=== PATIENT | female | born 1975 | race Caucasian/White ===

== ENCOUNTER 2020-09-29 09:27 | Outpatient (CLI) | payer BC, SELFPAY ==
--- NOTE | 2020-09-29 09:30 | ECG_ITS ---
Measurements Intervals [place] Rate: 54 P: 41 NM: 187 QRS: 55 QRSD: 93 T: 48 QT: 429 QTc: 409 Interpretive Statements SINUS BRADYCARDIA CANNOT RULE OUT SEPTAL INFARCT, AGE INDETERMINATE BASELINE ARTIFACT- II, III, AVL ABNORMAL ECG Electronically Signed On 09-29-2020 11:28:38 CDT by Leobardo Vazquez D.O.
[2020-09-29 10:18] LABS: Anion Gap 6 mmol/L (8-16); Blood Urea Nitrogen 8 mg/dL (7-17); Calcium 9.2 mg/dL (8.4-10.2); Carbon Dioxide 30 mmol/L (22-30); Chloride 100 mmol/L (98-107); Estimated Glomerular Filt Rate > 60; Glucose 92 mg/dL (65-110); Potassium 3.9 mmol/L (3.4-5.0); Sodium 136 mmol/L (137-145)
== END 2020-09-29 09:28 | disposition home or self-care (01) ==
PROVIDERS: Anesthesiology; PCP Family Medicine; Visit Provider Orthopaedic Surgery
DX: Z01.818 Encounter for other preprocedural examination (principal); I10 Essential (primary) hypertension; R00.1 Bradycardia, unspecified
CPT/HCPCS: 36415; 80048; 93005

== ENCOUNTER → 2020-09-30 00:42 | Outpatient (CLI) | payer BC, SELFPAY ==
[2020-09-30 17:52] LABS: SARS-CoV-2 RNA PCR Negative
== END ==
PROVIDERS: Anesthesiology; PCP Family Medicine; Visit Provider Orthopaedic Surgery
DX: Z01.812 Encounter for preprocedural laboratory examination (principal); Z20.822 Contact with and (suspected) exposure to COVID-19
CPT/HCPCS: C9803; U0003; U0005

== ENCOUNTER 2020-10-03 00:41 | Day surgery (SDC) | payer BC, SELFPAY ==
[2020-09-27 14:14] VITALS: BMI 25.0
[2020-10-03] VITALS (8 sets, daily range): BP systolic 118–134; BP diastolic 74–89; PULSE 66–89; RESP 12–18; TEMP 36.8–37.6; O2SAT 97–100
--- NOTE | ~2020-10-03 | XR_ITS ---
EXAMINATION: XR hand LT 2V EXAM DATE: 10/03/2020 13:01 INDICATION: Left thumb arthroplasty, postoperative. TECHNIQUE: Frontal and lateral projections of the left wrist. Comparison is made to prior examinatio n from 06/29/2020. FINDINGS: There are surgical changes from recent trapezium resection, with some associated subcutane ous gas. The lateral side of the hand and wrist is splinted. No other radiopaque foreign bodies. IMPRESSION: Status post trapezium resection. Reviewed, dictated and finalized at location B.
--- NOTE | 2020-10-03 08:28 | WPDANESEPPF ---
Anes - Initial Pre Proc Eval Procedure: Operation Date: 10/03/20 10:30 Proposed Procedures p Left Thumb Carpometacarpal Arthroplasty - Arturo Abernathy MD Date/Time: 10/03/20 08:28 Surgeon: Arturo Abernathy MD Pre Op Diagnosis: Left cmc arthritis Patient Data Age: 44 Gender: F Height: 1.55 m Weight: 60 kg Allergies Allergy/AdvReac Type Severity Reaction Status Date / Time No Known Allergies Allergy Verified 07/27/20 14:21 Home Medications Medication Instructions Recorded Confirmed Type cholecalciferol (vitamin D3) 125 5,000 unit PO DAILY cap 06/09/20 09/27/20 History mcg (5,000 unit) capsule labetalol 100 mg tablet 100 mg PO Q12H 06/09/20 09/27/20 History amlodipine 5 mg tablet 5 mg PO DAILY 06/29/20 09/27/20 History lisinopril 10 mg tablet 10 mg PO DAILY 06/29/20 09/27/20 History spironolactone 100 mg tablet 100 mg PO BID 06/29/20 09/27/20 History tramadol 50 mg tablet 50 mg PO Q6H PRN #60 tablet 07/28/20 09/27/20 Rx venlafaxine 75 mg tablet 75 mg PO TID #90 tablet 09/30/20 Rx Patient hx anesthesia problems: none Family hx anesthesia problems: none PMFSH Past Medical History Medical History Allergies Anxiety Essential (primary) hypertension Hypertension Hypokalemia Left wrist pain Migraine without aura and without status migrainosus, not intractable Osteoarthritis of carpometacarpal joint of left thumb UTI (urinary tract infection) Surgical History Surgical History History of x3 History of hysterectomy Family History Family History Mother Hypertension Cancer Father Hypertension Cancer Social History Social History Smoking status: Never smoker Alcohol intake: never Substance use: never Living arrangements: with family Gender identity (if verbalized by the patient): Female Anes - Eval Final PreProcedure Day of Procedure 10/03/20 08:28 Patient weight: normal Heart: regular rate and rhythm Lungs: clear to auscultation and normal air movement Airway: Mallampati scale class II Neurological: alert and oriented Last oral intake: >/= 8 hours ASA classification: II Emergent: no Anesthetic plan: proceed Anesthesia type and monitoring: general LMA and standard monitoring Informed Consent: The patient's anesthetic plan and its attendant risks and benefits were discussed with the patient/family/POA. Questions were solicited and answers provided to the satisfaction of the patient/family/POA.
--- NOTE | 2020-10-03 08:28 | WPDANESPNB ---
Anes - Peripheral Nerve Block Date/Time: 10/03/20 08:28 I have discussed with the patient/family/POA the placement of a peripheral nerve block for post-operative pain management, including associated risks, benefits, complications, and side effects. Alternative methods of post-operative analgesia were detailed. Questions were solicited and answers provided to the satisfaction of the patient/family/POA. Time-Out: A pre-procedural Time-Out was completed immediately before starting the procedure and confirmed: Patient Identification, Site, Procedure, Patient Position and the Availability of Requisite Equipment. Clinical Indications: Acute post-operative pain management requested by the operative surgeon. Nerve Block Insertion Note Anes-nerve block: supraclavicular left Patient position: supine Skin prep: chlorhexidine Needle: 22 gauge, stimulating, insulated echogenic needle. Needle length: 50 mm Technique: ultrasound Injectate: bupivacaine 0.5% with epi 5 mcg/ml (30cc- no epi) Observations: tolerated well Complications: none Procedure start time:: 1043 Procedure end time:: 1046
[2020-10-03] MEDS: LACTATED RINGERS 1,000 ML 30 ML IV CONT ×2 (09:30→13:20)
[2020-10-03] MEDS: ACETAMINOPHEN 500 MG TABLET 1000 MG PO (09:40)
[2020-10-03] MEDS: KETOROLAC 15 MG/ML VIAL (*BKC) IV PUSH (09:45)
--- NOTE | 2020-10-03 10:00 | WPDHPUPDATE1 ---
History and Physical Update Update Date/Time: 10/03/20 10:00 History and Physical has been reviewed, including an updated exam of the patient. There are NO changes in the patient's condition. Risks, benefits, and alternatives have been discussed and questions answered. Patient agrees to proceed with procedure.
[2020-10-03] MEDS: ceFAZolin 2 GM/D5W 50 ML 2 GM/50 ML BAG IVPB (10:51)
--- NOTE | 2020-10-03 12:46 | W.PM.PROC2 ---
Procedure Note - Detailed Date of Procedure 10/03/20 Pre-op Diagnosis Left cmc arthritis Post-op Diagnosis same Procedure Performed left thumb CMC suspension arthroplasty Surgeon Arturo Abernathy MD Control Systems Engineer [place] Anesthesia MAC and regional Indications see H&P Description of Procedure The patient was identified proper site identified. In the preop holding area the anesthesia team performed a left upper extremity block. She was then taken to the operating room transferred to the OR table placing her supine taking care to pad the torso and extremities. After general anesthetic induction and intubation, a nonsterile tourniquet was placed high on the left arm. The left upper extremity was prepped and draped in usual sterile fashion. Extremity was exsanguinated and tourniquet was inflated to 200 mmHg remaining up for approximately 68 minutes. A longitudinal incision was made over the FCR tendon curving radially at the base of the thenar musculature. Subcutaneous tissue bluntly dissected protecting neurovascular structures. A slip of the APL which inserted into the thenar musculature was released and marked for later repair. The thenar musculature was elevated up off of the carpus and the trapezium identified. While protecting the FCR, a trapeziectomy was performed. The a ulnar-sided distally-based 8 cm slip of FCR was then developed hand used to create a sling weaving the tendon slip between the FCR tendon and the APL tendon securing it to itself with 3-0 Ethibond suture. The EPL tendon was advanced on itself and also secured with 3-0 Ethibond suture seating the sling in the trapeziectomy site. This allowed the thumb to sit very nicely in a position of function. The EPB tendon was then reefed also with 3-0 Ethibond taking up the slack in that structure. The wound was irrigated with sterile antibiotic solution. The wrist capsule and thenar musculature were tacked back down with 4-0 Monocryl. The slip of the EPL was reattached to the thenar musculature with 3-0 Ethibond. Skin edges reapproximated with three 0 Monocryl and for 0 Prolene running subcuticular stitch.. Steri-Strips were applied. Sterile dressings applied and the tourniquet was released. Well-padded thumb spica splint was fashioned. The patient tolerated procedure well . She was awakened extubated and taken to recovery area in stable condition. There were no known intraoperative complications. Estimated blood loss was negligible. Perioperative antibiotics were administered. Estimated Blood Loss -2.0 Tourniquet Time 68 Drains No Packing No Pathology none sent Complications No immediate complications Condition stable
[2020-10-03] MEDS: ONDANSETRON INJ 4 MG/2 ML VIAL IV PUSH (13:00)
== END 2020-10-03 14:18 | disposition home or self-care (01) ==
PROVIDERS: PCP Family Medicine; Visit Provider Orthopaedic Surgery
PROC: (CPT 25447; principal; 2020-10-03 10:30)
DX: M18.12 Unilateral primary osteoarthritis of first carpometacarpal joint, left hand (principal); G89.18 Other acute postprocedural pain; I10 Essential (primary) hypertension; F41.9 Anxiety disorder, unspecified; E87.6 Hypokalemia
CPT/HCPCS: 25447; 64415; 73120; A4565; A9270; J0690; J1100; J1885; J2250; J2405; J2704; J3010; J7120

== ENCOUNTER 2020-12-01 08:00 | Outpatient (RCR) | payer BC, SELFPAY ==
--- NOTE | 2020-10-24 08:25 | OTOPEVAL ---
OCCUPATIONAL THERAPY INITIAL EVALUATION REPORT 10/24/2020 Thank you for referring Layla Mckeon to [facility].? The patient is scheduled to be seen for therapy? 1-2x/week for 4 weeks. Please review, sign, date and return this plan of care ROSARIO. I agree with and certify that the following plan of care is medically necessary. Referring Physician Date Referring Provider: Arturo Abernathy MD *OT Outpatient Evaluation Therapy Assessment Status Assessment Status Assessment Status Evaluation Outpatient Past Medical History Past Medical History Source of Past Medical History Recalled from Previous Visit, Confirmed with Patient/Family Neurological History Hx Neurological Disorders No Significant History Cardiovascular History Hx Hypertension Yes Respiratory History Hx Respiratory Disorders No Significant History Gastrointestinal History Hx Gastrointestinal Disorders No Significant History Genitourinary History Hx Genitourinary Disorders No Significant History Musculoskeletal History Hx Arthritis Yes: LEFT THUMB Hx Fractures Yes: LEFT WRIST FRACTURE Hematological History Hx Hematological Disorders No Significant History Endocrine History Hx Endocrine Disorders No Significant History HEENT History Hx HEENT Disorders No Significant History Integumentary History Hx Skin Disorders No Significant History Reproductive History Hx Hysterectomy Yes Psychosocial History Hx Psychiatric Disorders No Significant History Pain History History of Any Previous or Ongoing No Significant History Instance of Pain Anesthesia History Hx Anesthesia Reactions No Significant History Evaluation Information Problem Diagnosis Left thumb CMC arthroplasty Onset 10/03/20 Subjective Information Patient reports that since her Query Text:As Reported By Patient/ surgery she has been having Family her family help with doing the dishes and folding laundry. She has returned to being independent with ADLs and driving, just notes difficulty with heavier household tasks. Prior Level of Function Activity Level (Last 3 Months) Occupation Stay at home mom Hand Dominance Right Activity of Daily Living Ability Independent Cooking Yes Cleaning Yes Laundry Yes Shopping Yes Driving Yes Pain Assessment Timing of Pain Assessment Timing of Pain Assessment Assessment Pain Scale Pain Scale Used Numeric (1 - 10) Self Report Pain Assessment Left Thumb(s) Rep
--- NOTE | 2020-11-07 11:49 | PCOTNOTE ---
Patient did not show up for scheduled appointment this date. Called pt. and left voicemail informing of next appt.
--- NOTE | 2020-11-18 08:47 | PCOTNOTE ---
Patient called & cancelled scheduled appointment this date due to one of her kids being sick.
--- NOTE | 2020-12-01 08:57 | OTOPEVAL ---
OCCUPATIONAL THERAPY RE-EVALUATION AND DISCHARGE SUMMARY 12/01/20 Patient presents today, 8 weeks post op, for OT re-evaluation. Strengthening HEP was delayed until today due to limited therapy attendance. She tolerates resistive exercise well. Instructed in strengthening as well as how to progress resistance over the next few weeks. Recommend that she completes the strengthening program regularly throughout the month of December. She verbalizes good understanding of all of the instructed materials. Discharge today with patient independent with HEP. Thank you for referring Layla Mckeon to [facility]. Please review, sign, date and return this D/C Note ROSARIO. I agree with and certify that the following plan of care is medically necessary. Referring Physician Date Admitting Provider: Attending Provider: Arturo Abernathy MD Referring Provider: *OT Outpatient Evaluation Start: 10/24/20 07:28 Evaluation Information Problem Diagnosis Left thumb CMC arthroplasty Onset 10/03/20 Additional Evaluation Detail Patient was initially evaluated on 10/24/20 and was only able to attend 1 follow up appointment. Presents today for re-evaluation for instruction in strengthening HEP. Subjective Information Patient reports that she has Query Text:As Reported By Patient/ made progress with left hand Family use noting improved ability to use the left hand to wash dishes and do the laundry. She reports feeling weak which restricts her ability to do things like use a can engraver ornamental design. Patient does report some grinding sensation felt on the dorsum of the thumb, which appears to be coming from the 1st dorsal compartment. She states that normal ROM of the thumb causes this to happen. Discussed the mechanics of the tendons and that hopefully as she gets stronger this issue resolves. Recommend she follows up with MD if this gets worse or becomes painful. Pain Assessment Timing of Pain Assessment Timing of Pain Assessment Re-assessment Pain Scale Pain Scale Used Numeric (1 - 10) Self Report Pain Assessment Left Thumb(s) Reported Pain Level 0 Lowest Pain Intensity 0 Greatest Pain Intensity 0 Pain Score Pain Score 0: Self Report Upper Extremity Range of Mot
== END 2020-12-01 15:04 | disposition home or self-care (01) ==
LOC: ANHOT 08:00
PROVIDERS: PCP Family Medicine; Visit Provider Orthopaedic Surgery
DX: Z47.1 Aftercare following joint replacement surgery (principal); Z96.692 Finger-joint replacement of left hand
CPT/HCPCS: 97110; 97140; 97165

== ENCOUNTER 2020-12-14 15:41 | Emergency (ER) | payer BC, SELFPAY ==
--- NOTE | ~2020-12-14 | XR_ITS ---
EXAMINATION: XR wrist LT min 3V DATE: 12/14/2020 16:15 INDICATION: Left wrist pain post recent surgery TECHNIQUE: Posteroanterior, ulnar deviation, oblique, and lateral views of the left wrist were obtain ed. COMPARISON: 11/23/2020 and 06/29/2020 FINDINGS: Again seen are changes of prior first carpal metacarpal suspension arthroplasty with resection of the trapezium. There is some proximal subsidence of the first metatarsal into the resection bed. Which a ppears slightly increased since the prior study. No fracture. No cortical erosions or periosteal reac tion to suggest osteomyelitis. Remaining joint spaces are normal. There is soft tissue swelling about the volar and radial aspects of the wrist. IMPRESSION: 1. First carpal metacarpal suspension arthroplasty with mild interval subsidence of the first metacar pal into the resection bed of the trapezium. Reviewed, dictated and finalized at location B. IMPRESSION: 1. First carpal metacarpal suspension arthroplasty with mild interval subsidenc e of the first metacarpal into the resection bed of the trapezium.
--- NOTE | 2020-12-14 15:42 | ED.UPPEXIN ---
HPI - Extremity Injury (Upper) General Chief Complaint: Extremity Injury, Upper Stated Complaint: Would like X-Ray/ Left Hand Time Seen by Provider: 12/14/20 15:42 Source: patient and RN notes reviewed History of Present Illness HPI narrative: Patient is a 45-year-old female who presents the urgent care with complaints of left hand pain. Patient states that she had surgery on her left hand in September. States that when she picked up her granddaughter this afternoon she heard a pop in the left hand . And now there is swelling around the surgical site. Patient states that Dr. Abernathy did the surgery. States that she is taken both Tylenol and Advil prior to her arrival without much pain relief. Patient states that even hurts to straighten the left arm. No other acute complaints. No acute distress noted. Patient aware of the plan of care. Some parts of this dictation were generated by voice recognition software and may contain typographical and/or grammatical inaccuracies. Related Data Home Medications Medication Instructions Recorded Confirmed labetalol 100 mg tablet 100 mg PO Q12H 06/09/20 12/07/20 amlodipine 5 mg tablet 5 mg PO DAILY 06/29/20 12/07/20 lisinopril 10 mg tablet 10 mg PO DAILY 06/29/20 12/07/20 venlafaxine 225 mg PO DAILY 12/14/20 12/14/20 Allergies Allergy/AdvReac Type Severity Reaction Status Date / Time No Known Allergies Allergy Verified 12/14/20 16:06 Review of Systems Review of Systems: CONSTITUTIONAL: Denies fever, chills, or sweats. EYES: Denies visual changes, redness, or discharge. ENT: Denies rhinorrhea, congestion, sore throat, or otalgia. CARDIOVASCULAR: Denies chest pain, palpitations, or edema. RESPIRATORY: Denies cough or dyspnea. GASTROINTESTINAL: Denies abdominal pain, nausea, vomiting, or diarrhea. GENITOURINARY: Denies dysuria or hematuria. SKIN: Denies rash or itching. MUSCULOSKELETAL: Reports of left hand pain and swelling NEUROLOGIC: Denies headache, numbness, or weakness. All other systems reviewed are negative, except as documented in HPI. FOR[facility]LY [facility] Past Medical History Medical History Allergies Anxiety Essential (primary) hypertension Hypertension Hypokalemia Left wrist pain Migraine without aura and without status migrainosus, not intractable UTI (urinary tract infection) Surgical History Surgical History History of x3 History of hysterectomy Osteoarthritis of carpometacarpal joint of left thumb Left thumb CMC arthroplasty October 03, 2020 Family History Family History Mother Hypertension Cancer Father Hypertension Cancer Social History Social History Smoking status: Never smoker Alcohol intake: never Substance use: never Gender identity (if verbalized by the patient): Female Comments At the time of my signature, I reviewed and agree with the nursing past medical, surgical, social, and family history. There is no relevant family history pertinent to the patient complaint. Exam Narrative: GENERAL: This is a well-nourished, well-developed patient, in no apparent distress. HEAD: normocephalic, atraumatic. EYES: PERRL. Sclera clear/white. Vision is grossly intact. EARS: External ears normal NOSE: External nose normal with no obvious nasal discharge, nares without redness, no rhinorrhea. THROAT: Mucous membranes moist NECK: Neck supple CARDIOVASCULAR: Regular rate and rhythm without murmurs, gallops, or rubs. RESPIRATORY: Clear to auscultation. Breath sounds equal bilaterally. No wheezes, rales, or rhonchi. SKIN: warm, intact with no suspicious lesions or rash, good texture and turgor. NEURO: awake, alert, and oriented to person, place and time. There were no obvious focal neurologic abnormalities. EXTREMITIES: Localized edema to the
[2020-12-14 15:49] VITALS: BP 156/94; PULSE 71; RESP 18; TEMP 37.2; O2SAT 100
== END 2020-12-14 16:35 | disposition home or self-care (01) ==
PROVIDERS: Emergency Provider Nurse Practitioner Family; PCP Family Medicine
DX: M79.642 Pain in left hand (principal); I10 Essential (primary) hypertension; F41.9 Anxiety disorder, unspecified
CPT/HCPCS: 73110; 99213; G0463